=== PATIENT | male | born 1990 | race Caucasian/White ===

== ENCOUNTER → 2017-07-20 | Outpatient (CLI) | payer BC ==
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
== END ==
LOC: RAD 12:57
PROVIDERS: ATTEND Internal Medicine
DX: R22.31 Localized swelling, mass and lump, right upper limb (principal); M25.541 Pain in joints of right hand
CPT/HCPCS: 73130